=== PATIENT | male | born 1975 | race American Indian/Alaskan Native ===

== ENCOUNTER 2016-07-20 07:40 | Emergency (ER) | payer SELFPAY ==
[2016-07-20 08:09] LABS: Basophils % (Auto) 0.6 % (0.0-1.8); Eosinophils % (Auto) 6.4 % (0.0-4.3); Hematocrit 46.6 % (35.5-45.6); Hemoglobin 15.3 gm/dl (11.8-15.2); Mean Corpuscular HGB Conc 33 % (32-34); Mean Corpuscular Hemoglobin 29 pg (28-32); Mean Corpuscular Volume 88 fl (84-94); Platelet Count 227 K/mm3 (140-440); Red Blood Count 5.28 M/mm3 (3.65-5.03); Red Cell Distribution Width 14.8 % (13.2-15.2); White Blood Count 9.7 K/mm3 (4.5-11.0)
[2016-07-20 08:26] LABS: Alanine Aminotransferase 34 units/L (7-56); Albumin 4.4 g/dL (3.9-5); Albumin/Globulin Ratio 1.5 %; Alkaline Phosphatase 62 units/L (35-129); Anion Gap 16 mmol/L; Blood Urea Nitrogen 18 mg/dL (9-20); Calcium 9.6 mg/dL (8.4-10.2); Carbon Dioxide 29 mmol/L (22-30); Glucose 104 mg/dL (75-100); Lipase 32 units/L (13-60); Potassium 4.3 mmol/L (3.6-5.0); Sodium 141 mmol/L (137-145); Total Protein 7.4 g/dL (6.3-8.2)
[2016-07-20] MEDS ORDERED: MORPHINE IV ONE (10:39)
[2016-07-20] MEDS ORDERED: PROTONIX IV ONE (10:40)
--- NOTE | 2016-07-20 10:41 | Emergency Department Report ---
HPI - General Chief Complaint: Abdominal Pain Time Seen by Provider: 07/20/16 10:12 - HPI HPI: This is a 41-year-old male presents to the emergency department with complaint of a 2-3 month history of upper abdominal pain, nausea, vomiting and some diarrhea. He also has some intermittent chest discomfort. He says that this started since he was diagnosed with Helicobacter pylori but cannot remember the physician or Hospital where he received this diagnosis and is not on any medication for it. He also has not taken anything recently for his discomfort. He denies any fever, shortness of breath or diaphoresis. No recent travel or sick contacts at home. He denies any past medical history. He does not have a primary care physician. ED Past Medical Hx - Past Medical History Previous Medical History?: No - Surgical History Past Surgical History?: No - Social History Smoking Status: Never Smoker Substance Use Type: None - Medications Home Medications: Home Medications Medication Instructions Recorded Confirmed Last Taken Type HYDROcodone/APAP 5-325 [[place] 1 each PO Q6HR PRN #12 tablet 07/20/16 Unknown Rx 5/325] Omeprazole Magnesium [PriLOSEC Otc] 20 mg PO QDAY #20 tablet. 07/20/16 Unknown Rx Ondansetron [Zofran Odt] 4 mg PO Q8H PRN #10 tab.rapdis 07/20/16 Unknown Rx ED Review of Systems ROS: Stated complaint: ABD PAIN Other details as noted in HPI Comment: All other systems reviewed and negative Constitutional: denies: chills, fever Eyes: denies: eye pain, eye discharge, vision change ENT: denies: ear pain, throat pain Respiratory: denies: cough, shortness of breath, wheezing Cardiovascular: chest pain. denies: edema Gastrointestinal: abdominal pain, nausea, vomiting, melena Genitourinary: denies: urgency, dysuria Musculoskeletal: denies: back pain, joint swelling, arthralgia Skin: denies: rash, lesions Neurological: denies: headache, weakness, paresthesias Physical Exam - Physical Exam Vital Signs: Vital Signs 07/20/16 07:43 Temperature 98.5 F Pulse Rate 75 Respiratory 16 Rate Blood Pressure 123/89 O2 Sat by Pulse 100 Oximetry Physical Exam: GENERAL: The patient is well-developed well-nourished. HEENT: Normocephalic. Atraumatic. Extraocular motions are intact. Patient has moist mucous membranes. Pupils equal reactive to light bilaterally. NECK: Supple. Trachea is midline. CHEST/LUNGS: Clear to auscultation. There is no respiratory distress noted. HEART/CARDIOVASCULAR: Regular. There is no tachycardia. There is no gallop rub or murmur. ABDOMEN: Abdomen is soft. Mild upper quadrant abdominal tenderness to palpation. No guarding rebound tenderness. No peritoneal signs. Patient has normal bowel sounds. There is no abdominal distention. SKIN: Skin is warm and dry. NEURO: The patient is awake, alert, and oriented. The patient is cooperative. The patient has no focal neurologic deficits. The patient has normal speech. MUSCULOSKELETAL: There is no tenderness or deformity. There is no limitation range of motion. There is no evidence of acute injury. ED Course Vital Signs 07/20/16 07:43 Temperature 98.5 F Pulse Rate 75 Respiratory 16 Rate Blood Pressure 123/89 O2 Sat by Pulse 100 Oximetry ED Medical Decision Making - Lab Data Result diagrams: 07/20/16 07:52 07/20/16 07:52 - EKG Data -: EKG Interpreted by Me EKG shows normal: sinus rhythm, axis, intervals, QRS complexes, ST-T waves Rate: bradycardia (50 bpm) - EKG Data When compared to previous EKG there are: previous EKG unavailable Interpretation: normal EKG (sinus bradycardia) - Radiology Data Radiology results: report reviewed, image reviewed interpreted by me: Chest x-ray did not show any acute process. Heart is normal shape and size. No effusions. No pneumothorax. No signs of pneumonia seen. Abdominal x-ray shows nonspecific nonobstructive bowel gas Upper abdominal ultrasound shows a fatty liver but otherwise no acute process. - Medical Decision Making 41-year-old male presents the emergency department with some intermittent upper abdominal pain and some occasional chest discomfort. The patient says it feels mostly like it is bubbling. Vital signs stable throughout his ED course. Patient's labs are unremarkable including negative troponins 2, no signs of infection, normal electrolyte, normal renal function and normal belly labs include LFTs, bilirubin and lipase. Urinalysis does not show any signs of infection. The patient was given some pain medication, nausea medication and a PPI. Abdominal and chest x-rays did not show any acute process. Ultrasound of the upper quadrants did not show any signs of cholecystitis, cholelithiasis or any acute process. Upon reevaluation the patient says he is feeling better. He has a prolonged history of the symptoms and a previous history of Helicobacter pylori. The patient does not have any risk factors for coronary artery disease and is a CYNTHIA score of 1 if his chest pain is considered angina and 0 if not. He is low on the heart score criteria as well. However I feel that his pain is mostly in his abdomen. The patient is feeling improved and appears safe for discharge home at this time. He'll be given referrals for primary care, gastroenterology and cardiology. He has been encouraged to return to the emergency department with any worsening of symptoms or any acute distress. - Differential Diagnosis Helicobacter pylori, peptic ulcer disease, pancreatitis, cholelithiasis, ch Critical Care Time: No Critical care attestation.: If time is entered above; I have spent that time in minutes in the direct care of this critically ill patient, excluding procedure time. ED Disposition Clinical Impression: Chest discomfort, Nausea Abdominal pain Qualifiers: Abdominal location: upper abdomen, unspecified Qualified Code(s): R10.10 - Upper abdominal pain, unspecified Disposition: DISCHARGED TO HOME OR SELFCARE Is pt being admited?: No Condition: Stable Instructions: Chest Pain (ED), Abdominal Pain (ED), Gas and Bloating (ED), Acute Nausea and Vomiting (ED) Additional Instructions: Please follow-up with a primary care doctor in the next few days. I've given you a referral for a local personal banking advisor, Dr. Brennan, to follow up regarding your chronic abdominal pains. I've also given you a referral for a local jump iron machine presser, Dr. Bush, to follow up regarding her chest discomfort. Return to the emergency department with any worsening of your symptoms or any acute distress. You've been prescribed a medication that is sedating. Therefore this medication cannot be mixed with alcohol, or taken prior to driving, working, or being responsible for children. Prescriptions: HYDROcodone/APAP 5-325 [[place] 5/325] 1 each PO Q6HR PRN #12 tablet PRN Reason: Pain Omeprazole Magnesium [PriLOSEC Otc] 20 mg PO QDAY #20 tablet. Ondansetron [Zofran Odt] 4 mg PO Q8H PRN #10 tab.rapdis PRN Reason: Nausea Referrals: PRIMARY CARE, [Primary Care Provider] - 3-5 Days PATRICIA BUSH MD [Staff Physician] - 3-5 Days JHONATAN BRENNAN MD [Staff Physician] - 3-5 Days ABDOULAYE BEST MD [Staff Physician] - 3-5 Days [facility] [Outside] - 3-5 Days Time of Disposition: 14:55
[2016-07-20 11:01] LABS: Bilirubin,Urine NEG (Negative); Blood,Urine NEG (Negative); Ketones,Urine NEG (Negative); Leukocyte Esterase,Urine NEG (Negative); Mucus,Urine 2+ /HPF; Nitrite,Urine NEG (Negative); Protein,Urine <15 mg/dL mg/dL (Negative); Urobilinogen,Urine < 2.0 mg/dL (<2.0)
[2016-07-20] MEDS ORDERED: ZOFRAN ONE (11:13)
[2016-07-20] MEDS ORDERED: ZOFRAN IV ONE (11:18)
--- NOTE | 2016-07-20 11:31 | XRay Report ---
ABDOMINAL SERIES INDICATION: Chest pain, abdominal pain. COMPARISON: None similar at this institution. FINDINGS: Abdominal series, three radiographs, demonstrate nonobstructive bowel gas pattern without focal suspicious calcifications, pneumatosis or pneumoperitoneum. Mild to moderate colonic stool/possible constipation. Accompanying chest radiograph demonstrates normal cardiomediastinal silhouette. Clear lungs. Unremarkable bones. CONCLUSION: Findings, as above. Please correlate. Thank you for the opportunity to participate in this patient's care.
--- NOTE | 2016-07-20 13:20 | Ultrasound Report ---
Sonogram right upper quadrant: History: Upper abdominal pain. Findings: Normal aorta. Mildly inhomogeneous liver probably suggestive of fatty liver. No intrahepatic or extrahepatic duct dilatation. Bilateral diameter 3.9 mm. Gallbladder wall thickness 2.1 mm. No calculi in the gallbladder. Right kidney 10.9 x 4.3 x 4.8 cm. Cortical thickness is 1.4 cm. No mass. No hydronephrosis. Pancreas obscured by bowel gas. Impression: Probable fatty liver.
--- NOTE | 2016-07-20 14:38 | Admit Criteria Form ---
Admission Criteria Documentation: ABDOMINAL PAIN Clinical Indications for Admission to Inpatient Care (Place 'X' for any and all applicable criteria): Admission is indicated for ANY ONE of the following(1)(2)(3)(4)(5): [X ]I. Inpatient admission required rather than observation care (Also use Abdominal Pain: Observation Care, as appropriate) because of ANY ONE of the following: [ ]a) Severe pain requiring acute inpatient management [X ]b) Identification of etiology/finding that requires inpatient care (eg, aortic dissection, free air) [ ]c) Absent bowel sounds with complete ileus(6) [ ]d) Suspected toxic megacolon [ ]e) Severe electrolyte abnormalities requiring inpatient care [ ]f) High fever or infection requiring inpatient admission as indicated by ANY ONE of following(7)(8): [ ] i) Appropriate outpatient or observational care antimicrobial treatment unavailable, not effective, or not feasible [ ] ii) Documented bacteremia [ ] iii) Temperature > 104.9 degrees F (oral) [ ] iv) T >103.1 F (oral) or < 96.8 F(rectal) that does not respond to all emergency treatment measures [ ]g) Signs of intestinal obstruction [B] [ ]h) Hemodynamic instability [ ]i) IV fluid to replace significant ongoing losses (greater than 3 L/m2 per day) (12)(13) [ ]j) Percutaneous or open drainage (eg, abscess, biliary tract ) procedures [ ]k) Parenteral nutrition regimen that must be implemented on inpatient basis [ ]l) Other condition,treatment or monitoring requiring inpatient admission. [ ]II. Peritoneal signs present [ ]III. Surgery needed that cannot be performed on an ambulatory basis. [ ]IV. Evaluation requires patient to not eat or drink for extended period ( eg, more than 24 hours). [ ]V. Contraindications and/or Inappropriate clinical situations for Observational Care in patients with abdominal pain, when ANY ONE of the following is required: [ ]a) Thorough evaluation is required to prevent catastrophic events due to delays in diagnosing (e.g.Mesenteric ischemia) 1,3 [ ]b) Patient with severe pathology or with chronic symptoms unlikely to improve in the ED stay (3) [ ]. General contraindications and/or Inappropriate clinical situations for Observational Care in patients with abdominal pain, when ANY ONE of the following is required: [ ]a) Prediction of prolongation of LOS based on ANY ONE of the following may be considered as a contraindication for observational care 2, 3, 4, 5, 6, 7, 8, 9, 10, 11 [ ]i) Age > 65 yrs. [ ]ii) Patient arriving by ambulance [ ]iii) Patient with high acuity [ ]iv) Patient requiring vital sign monitoring [ ]v) Patient on IV medication [ ]b) Systolic blood pressures 180mmHg 3,12 [ ]c) Patient with altered mental status including delirium and other alteration of consciousness, (3) [ ]d) Patient whose discharge disposition will be to a senior living home or rehabilitation home should not be managed in Emergency Department Observation Unit. CMS rule requires 3 days hospital stay before such placement.3,13 [ ]e) Patient with failure to thrive due to broad array of etiologies 3,16,17 [ ]f) Inability to ambulate 3,14 Extended stay beyond goal length of stay may be needed for(2)(3): [ ]a) Persistent abdominal pain with suspected intra-abdominal process [ ]b) Diagnosed condition requiring continued stay (e.g., pancreatitis, complicated diverticulitis) [ ]c) Surgery (e.g., colectomy) The original [employer] content created by [facility] has been revised. The portions of the content which have been revised are identified through the use of italic text or in bold, and [facility] has neither reviewed nor approved the modified material.All other unmodified content is copyright [employer]. Please see references footnoted in the original [employer] edition 2016
[2016-07-20 15:18] VITALS: BP 126/82
== END 2016-07-20 15:16 | disposition home or self-care (01) ==
LOC: ED 07:40
DX: R07.89 Other chest pain (principal); R10.10 Upper abdominal pain, unspecified; R11.2 Nausea with vomiting, unspecified
CPT/HCPCS: 36415; 74022; 76705; 80053; 81001; 83690; 84484; 85025; 93005; 93010; 96374; 96375; 99284; C9113; J2270; J2405

== ENCOUNTER 2016-09-15 09:13 | Emergency (ER) | payer SELFPAY ==
--- NOTE | 2016-09-15 09:40 | Emergency Department Report ---
Chief Complaint: Chest Pain Stated Complaint: CHEST AND BACK PAIN Time Seen by Provider: 09/15/16 09:31 - HPI History of Present Illness: PT reports chest pain that radiates to his back. PT also feels bloated and is having abd pain. PT states he has had his symptoms for at least 2 weeks. - ROS Review of Systems: + chest pain + abd pain + sob - n/v - Exam Physical Exam: male, no acute distress steady gait chest pain is reproducible MSE screening note: Focused history and physical exam performed. Due to findings the following was ordered: xr, labs ED Disposition for MSE Condition: Stable
[2016-09-15 09:57] LABS: Basophils % (Auto) 0.5 % (0.0-1.8); Eosinophils % (Auto) 4.9 % (0.0-4.3); Hematocrit 47.9 % (35.5-45.6); Hemoglobin 16.1 gm/dl (11.8-15.2); Mean Corpuscular HGB Conc 34 % (32-34); Mean Corpuscular Hemoglobin 30 pg (28-32); Mean Corpuscular Volume 88 fl (84-94); Platelet Count 257 K/mm3 (140-440); Red Blood Count 5.45 M/mm3 (3.65-5.03); Red Cell Distribution Width 14.2 % (13.2-15.2); White Blood Count 10.8 K/mm3 (4.5-11.0)
[2016-09-15 10:10] LABS: INR 0.96 (0.87-1.13)
[2016-09-15 10:11] LABS: Partial Thromboplastin Time 30.3 Sec. (24.2-36.6)
--- NOTE | 2016-09-15 10:16 | XRay Report ---
ROUTINE CHEST, TWO VIEWS: HISTORY: chest pain. The trachea, heart, mediastinal contour, lung sylvester and bony thorax are unremarkable. IMPRESSION: Unremarkable chest x-ray.
[2016-09-15 10:19] LABS: Alanine Aminotransferase 37 units/L (7-56); Albumin 4.9 g/dL (3.9-5); Albumin/Globulin Ratio 1.5 %; Alkaline Phosphatase 75 units/L (35-129); Anion Gap 18 mmol/L; BUN/Creatinine Ratio 18.75; Blood Urea Nitrogen 15 mg/dL (9-20); Carbon Dioxide 29 mmol/L (22-30); Chloride 98.1 mmol/L (98-107); Glucose 84 mg/dL (75-100); Lipase 36 units/L (13-60); Potassium 4.3 mmol/L (3.6-5.0); Sodium 141 mmol/L (137-145); Total Protein 8.1 g/dL (6.3-8.2)
[2016-09-15 15:33] LABS: Urine Drugs of Abuse Note Disclamer
[2016-09-15 15:46] LABS: Bilirubin,Urine NEG (Negative); Blood,Urine NEG (Negative); Ketones,Urine NEG (Negative); Leukocyte Esterase,Urine NEG (Negative); Nitrite,Urine NEG (Negative); Protein,Urine <15 mg/dL mg/dL (Negative); Urobilinogen,Urine < 2.0 mg/dL (<2.0)
--- NOTE | 2016-09-15 19:06 | Emergency Department Report ---
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 He stated his symptoms as it going on for months. But has not been able to go to work because of fatigue accompanied with the above-mentioned symptoms. Patient denies any fever or chills night sweats. The patient had been eating and denies any nausea or vomiting. No prior medical history. ED Past Medical Hx - Past Medical History Previous Medical History?: Yes Hx Congestive Heart Failure: No Hx Diabetes: No Hx Asthma: No Hx COPD: No Additional medical history: H. pylori - Surgical History Past Surgical History?: No - Social History Smoking Status: Never Smoker Substance Use Type: None - Medications Home Medications: Home Medications Medication Instructions Recorded Confirmed Last Taken Type Pantoprazole [Protonix TAB] 20 mg PO QDAY #30 tablet. 12/26/15 Unknown Rx traMADol [Ultram 50 MG tab] 50 mg PO Q8H PRN #15 tablet 12/27/15 Unknown Rx Ibuprofen [Motrin 800 MG tab] 800 mg PO Q8HR #30 tablet 05/29/16 Unknown Rx HYDROcodone/APAP 5-325 [[place] 1 each PO Q6HR PRN #12 tablet 07/20/16 Unknown Rx 5/325] Omeprazole Magnesium [PriLOSEC Otc] 20 mg PO QDAY #20 tablet. 07/20/16 Unknown Rx Ondansetron [Zofran Odt] 4 mg PO Q8H PRN #10 tab.rapdis 07/20/16 Unknown Rx methOCARBAMOL [Robaxin TAB] 500 mg PO Q6H PRN #20 tablet 09/15/16 Unknown Rx ED Review of Systems ROS: Stated complaint: CHEST AND BACK PAIN Other details as noted in HPI Comment: All other systems reviewed and negative Cardiovascular: chest pain Gastrointestinal: abdominal pain, nausea Musculoskeletal: arthralgia Physical Exam - Physical Exam Vital Signs: Vital Signs 09/15/16 09/15/16 09:31 18:15 Temperature 97.6 F 98.3 F Pulse Rate 57 L 89 Respiratory 16 18 Rate Blood Pressure 119/80 Blood Pressure 126/100 [Right] O2 Sat by Pulse 100 Oximetry Physical Exam: Vital signs reviewed. Gen. alert and oriented 3 in no distress Head atraumatic normocephalic Eyes PERR LA EOMI Chest regular rate and rhythm normal S1-S2 lungs clear bilaterally Abdomen soft nondistended Back no point tenderness paravertebral tenderness Neuro no focal deficit. Psych normal mood. ED Course Vital Signs 09/15/16 09/15/16 09:31 18:15 Temperature 97.6 F 98.3 F Pulse Rate 57 L 89 Respiratory 16 18 Rate Blood Pressure 119/80 Blood Pressure 126/100 [Right] O2 Sat by Pulse 100 Oximetry ED Medical Decision Making - Lab Data Result diagrams: 09/15/16 09:43 09/15/16 09:43 Critical care attestation.: If time is entered above; I have spent that time in minutes in the direct care of this critically ill patient, excluding procedure time. ED Disposition Clinical Impression: Chest wall pain Disposition: DC-01 TO HOME OR SELFCARE Is pt being admited?: No Does the pt Need Aspirin: No Condition: Stable Instructions: Chest Pain (ED) Prescriptions: methOCARBAMOL [Robaxin TAB] 500 mg PO Q6H PRN #20 tablet PRN Reason: Pain Referrals: PRIMARY CARE, [Primary Care Provider] - 3-5 Days Forms: Work/School Release Form(ED)
[2016-09-15 19:09] VITALS: BP 120/83
== END 2016-09-15 19:31 | disposition home or self-care (01) ==
LOC: ED 09:13
DX: R07.89 Other chest pain (principal)
CPT/HCPCS: 36415; 71020; 80053; 80307; 81001; 83690; 84484; 85025; 85379; 85610; 85730; 93005; 93010; 99284